=== PATIENT | female | born 1980 | race Caucasian/White ===

== ENCOUNTER 2024-10-30 20:52 | Emergency (ER) | payer MEDICAID ==
[~2024-10-30] VITALS: Ht 165.1 cm; Wt 56.7 kg
[2024-10-30 23:05] LABS: BASOPHILS % (AUTO) 0.7 % (0.0-2.0); EOSINOPHILS # (AUTO) 0.2 K/uL (0.0-0.7); EOSINOPHILS % (AUTO) 2.9 % (0.0-6.0); HEMATOCRIT 36 % (33-45); HEMOGLOBIN 11.9 g/dL (11.5-14.8); LYMPHOCYTES # (AUTO) 2.2 K/uL (0.8-4.8); LYMPHOCYTES % (AUTO) 37.4 % (20.0-44.0); MEAN CORPUSCULAR HEMOGLOBIN 30 PG (26.0-33.0); MEAN CORPUSCULAR HGB CONC 34 g/dl (31.0-36.0); MEAN CORPUSCULAR VOLUME 89 fL (82-100); MONOCYTES # (AUTO) 0.3 K/uL (0.1-1.30); MONOCYTES % (AUTO) 5.7 % (2.0-12.0); NEUTROPHILS # (AUTO) 3.1 K/uL (1.8-8.9); NEUTROPHILS % (AUTO) 53.3 % (43.0-81.0); PLATELET COUNT (AUTO) 217 K/uL (150-450); RED BLOOD CELL COUNT(AUTO) 4.01 MIL/uL (4.0-5.2); WHITE BLOOD COUNT (AUTO) 5.8 K/uL (4.3-11.0)
[2024-10-30] MEDS ORDERED: IOHEXOL-300 100 ML VIAL IV ONE (23:07)
[2024-10-30] MEDS ORDERED: IV NS 0.9% 250 ML IV ONE (23:07)
[2024-10-30 23:08] LABS: APPEARANCE,URINE CLEAR (CLEAR); BILIRUBIN,URINE NEGATIVE (NEGATIVE); BLOOD, URINE NEGATIVE Ery/uL (NEGATIVE); COLOR,URINE YELLOW (YELLOW); KETONES,URINE NEGATIVE (NEGATIVE); LEUKOCYTE ESTERASE ,URINE NEGATIVE (NEGATIVE); NITRITE, URINE NEGATIVE (NEGATIVE); PH,URINE 7.5 (5.0-8.0); PREGNANCY TEST URINE QUAL NEGATIVE (NEGATIVE); PROTEIN,URINE NEGATIVE (NEGATIVE); UGLUCOSE NEGATIVE (NEGATIVE); UROBILINOGEN,URINE 0.2 EU/dL (0.2)
[2024-10-30] MEDS ORDERED: CT SWABBABLE VALVE TRANS SET 1 EA INFUS.SET MC ONE (23:08)
[2024-10-30 23:17] LABS: ALBUMIN 3.8 g/dL (3.4-5.0); BILIRUBIN,DIRECT 0.1 mg/dL (0.0-0.2); BILIRUBIN,TOTAL 0.3 mg/dL (0.2-1.0); CALCIUM, SERUM 8.2 mg/dL (8.5-10.1); CREATININE 0.7 mg/dL (0.6-1.3); POTASSIUM 3.7 mmol/L (3.5-5.1); TOTAL PROTEIN, SERUM 7.2 g/dL (6.4-8.2)
[2024-10-30] MEDS ORDERED: diphenhydrAMINE HCL 50 MG/ML VIAL ONE (23:49)
[2024-10-31] MEDS ORDERED: LORATADINE 10 MG TABLET ONE (00:01)
[2024-10-31] MEDS ORDERED: diphenhydrAMINE HCL 25 MG CAPSULE ONE (00:01)
[2024-10-31] MEDS: diphenhydrAMINE HCL 25 MG CAPSULE PO ONE (00:03)
[2024-10-31] MEDS: LORATADINE 10 MG TABLET PO SCH (00:03)
[2024-10-31 02:37] VITALS: BP 112/80; TEMP 98.6; O2SAT 100
== END 2024-10-31 02:37 | disposition home or self-care (01) ==
LOC: ER 20:57
DX: R10.31 Right lower quadrant pain (principal); R42 Dizziness and giddiness; Z88.0 Allergy status to penicillin
CPT/HCPCS: 99285; 74177; 85025; 80048; 83690; 80076; 84703; 81003; 36415; J1200; J7050; Q9967; Q0163